=== PATIENT | male | born 1990 | race Caucasian/White ===

== ENCOUNTER 2023-10-12 21:22 | Emergency (ER) | payer BC, SELFPAY ==
--- NOTE | 2023-10-12 | ECG_ITS ---
Test Reason : chest pain, shortness of breath Blood Pressure : / mmHG Vent. Rate : 085 BPM Atrial Rate : 085 BPM P-R Int : 166 ms QRS Dur : 088 ms QT Int : 354 ms P-R-T Axes : 015 029 008 degrees QTc Int : 421 ms Normal sinus rhythm Normal ECG No previous ECGs available Referred By: Generic ED Physician Electronically Signed By:ANDREW STOCKTON
[2023-10-12 21:34] VITALS: BP 143/82; PULSE 95; RESP 20; TEMP 36.9; O2SAT 97; BMI 31.5
--- NOTE | 2023-10-12 21:57 | ED_ITS ---
HPI - General Adult General Chief complaint: Upper Respiratory Symptoms Stated complaint: Chest pain Time Seen by Provider: 10/12/23 21:54 History of Present Illness ED Provider: Mattie MORRISSEY narrative: The patient is a 33-year-old male with a history of asthma. He is also a smoker. He has felt unwell for about 3 days with a cough and a sense of chills. He has been using his inhaler a lot but he does not feel he is getting all that much better. Related Data Previous Rx's ?Medication ?Instructions ?Recorded albuterol sulfate 90 mcg/actuation 2 puff inhalation Q4-6H PRN 10/12/23 aerosol inhaler shortness of breath or wheezing #8.5 grams azithromycin 250 mg tablet 250 mg PO DAILY 4 days #4 tabs 10/12/23 prednisone 20 mg tablet 20 mg PO DAILY #12 tabs 10/12/23 Allergies Allergy/AdvReac Type Severity Reaction Status Date / Time cinnamon Allergy Swelling Verified 10/12/23 21:38 Review of Systems Review of Systems: Yes all other systems are reviewed and are negative PENDING SALE TO [facility] Social History Social History Advance Directives: No Advance Directives Information Provided: No Do you have a plan to hurt others: No Plan Physical Exam ED Vital Signs: Vital Signs - 24 hr 10/12/23 21:34 10/12/23 23:03 Temperature 98.4 F Pulse Rate 95 82 Respiratory Rate 20 18 Blood Pressure 143/82 H Pulse Oximetry 97 Oxygen Delivery Method Room Air BMI result Body Mass Index 31.5 Const Other: The patient is awake, alert, pleasant, cooperative. He was occasionally exhibiting a dry cough HENMT Other: Face is symmetrical. Mucous membranes moist. Eyes Other: Pupils are round equal, conjunctivae clear Neck Other: No stridor Resp Other: No overt increased work of breathing. There is inspiratory and expiratory wheezing bilaterally Cardio Rate: regular rate Rhythm: regular rhythm Heart sounds: S1 normal heart sound present and S2 normal heart sound present Skin Other: Skin is dry and unremarkable Neuro Other: The patient is awake and alert with a normal mental status and seems grossly neurologically intact. Extrem Other: No peripheral edema Medications Administered Discontinued Medications Generic Name Dose Route Start Last Admin Trade Name Freq PRN Reason Stop Dose Admin Azithromycin 500 mg 10/12/23 22:53 10/12/23 23:15 Azithromycin 500 Mg Tablet PO 10/12/23 22:54 500 mg ONCE ONE Administration Albuterol Sulfate 2.5 mg/ 0 mg 10/12/23 23:00 10/12/23 23:03 Albuterol/Ipratropium 3 ml INHALE 10/12/23 23:01 5 dose ONCE ONE Administration Prednisone 60 mg 10/12/23 22:53 10/12/23 23:15 Prednisone 20 Mg Tablet PO 10/12/23 22:54 60 mg ONCE ONE Administration Medical Decision Making Medical Decision Making [facility] Narrative: The patient is a 33-year-old male who presents with what seems to be an acute asthmatic bronchitis exacerbation. He has significant wheezing bilaterally. He is not exhibiting increased work of breathing and he is not hypoxic. He has a history of asthma. He is a smoker. The patient has tested negative for COVID, RSV, and the flu. A rapid strep was also sent that was negative. The patient does not appear toxic. He was treated with a bronchodilator updraft. He was started on prednisone and azithromycin. He looks well enough for outpatient management. He should follow up with his PCP at [facility]. Lab Data Labs: Lab Results 10/12/23 Range/Units 21:51 Influenza Type A (PCR) NEGATIVE (Negative) Influenza Type B (PCR) NEGATIVE (Negative) RSV RNA Qual (PCR) NEGATIVE (Negative) SARS-CoV-2 RNA (RT-PCR) NEGATIVE (Negative) S. pyogenes GrpA NAMAN Negative (Negative) Independent Interpretation I performed an independent interpretation of an: EKG Interpretation: EKG at 21:23 shows normal sinus rhythm at 85 beats per minute. Discharge Plan Discharge Clinical Impression: Acute asthmatic bronchitis Patient Disposition: Home, Self-Care Additional Instructions: I have sent a prescription for a new albuterol inhaler to your pharmacy. Please take 2 puffs every 4-6 hours as needed. I have also sent a prescription for a 5 day course of prednisone. Please take this once a day as prescribed. I have also sent a prescription for the antibiotic azithromycin. Please take this once a day for 4 days. Drink lot of fluids. You may use acetaminophen (Tylenol) as needed for discomfort. Please follow up soon with your regular doctor. Return to the emergency room if significantly worse. Prescriptions: New prednisone 20 mg tablet 20 mg PO DAILY Qty: 12 0RF Rx Instructions: Take 3 tablets by mouth daily for 2 days, then 2 tablets by mouth daily for 3 days. azithromycin 250 mg tablet 250 mg PO DAILY 4 Days Qty: 4 0RF Rx Instructions: start on day 2 of therapy albuterol sulfate 90 mcg/actuation HFA aerosol inhaler 2 puff inhalation Q4-6H PRN (Reason: shortness of breath or wheezing) Qty: 8.5 0RF Referrals: Junior Tan MD [Physician] - (asthma) Print Language: Sammarinese
[2023-10-12 22:26] LABS: IDNOW Serial# 58CA691E; Strep A Nucleic Acid Negative (Negative)
[2023-10-12 22:44] LABS: Influenza A PCR NEGATIVE (Negative); Influenza B PCR NEGATIVE (Negative); Resp Syncy Virus RNA Qual PCR NEGATIVE (Negative); SARS COV2 PCR INHOUSE NEGATIVE (Negative)
[2023-10-12 23:03] VITALS: PULSE 82; RESP 18; O2SAT 96
[2023-10-12] MEDS: Albuterol Sulfate 2.5 MG, Albuterol/Iprat 2.5/0.5MG 3 ML 3 ML INHALE (23:03)
[2023-10-12] MEDS: Azithromycin 500 MG TABLET PO (23:15)
[2023-10-12] MEDS: predniSONE 20 MG TABLET 60 MG PO (23:15)
[2023-10-12 23:35] VITALS: BP 142/86; PULSE 106; RESP 18; TEMP 37.2; O2SAT 97
== END 2023-10-12 23:40 | disposition home or self-care (01) ==
PROVIDERS: Emergency Provider Emergency Medicine
DX: J45.909 Unspecified asthma, uncomplicated (principal); R07.89 Other chest pain; R05.9 Cough, unspecified; F17.210 Nicotine dependence, cigarettes, uncomplicated; Z03.818 Encounter for observation for suspected exposure to other biological agents ruled out
CPT/HCPCS: 0241U; 87651; 93005; 94640; 99284; 99285

== ENCOUNTER → 2023-10-12 21:23 | Outpatient (BNV) | payer BC, SELFPAY | PROVIDERS: Emergency Provider Emergency Medicine; Visit Provider Internal Medicine | DX: R07.9 Chest pain, unspecified (principal) | CPT/HCPCS: 93010 ==